=== PATIENT | female | born 1980 | race African-American/Black ===

== ENCOUNTER 2017-04-20 00:16 | Inpatient (IN) | payer OTHER ==
[~2017-04-20] VITALS: Ht 167.6 cm; Wt 168.0 kg
[~2017-04-20 00:16] MED LIST: METO25TA2 PO; TRIA1CAP3 PO
[2017-04-20 00:59] LABS: NEG OBC UR NEG; POS OBC UR POS
[2017-04-20 01:32] LABS: BASO # 0.2 x10^3/uL (0.0-0.2); BASO % 1 % (0-3); EOS % 2 % (0-3); HEMATOCRIT 32.5 % (36.0-47.0); HEMOGLOBIN 10.3 g/dL (12.0-15.5); LYMPH # 2.6 x10^3/uL (1.0-4.8); LYMPH % 18 % (24-48); MEAN CORPUSCULAR HEMOGLOBIN 24 pg (25-35); MEAN CORPUSCULAR HGB CONC 32 g/dL (31-37); MEAN CORPUSCULAR VOLUME 76 fL (79-100); MONO % 6 % (0-9); NEUT % 72 % (31-73); PLATELET COUNT 440 x10^3/uL (140-400); RED CELL DISTRIBUTION WIDTH 17.7 % (11.5-14.5); WHITE BLOOD COUNT 14.4 x10^3/uL (4.0-11.0)
[2017-04-20 01:44] LABS: CALCIUM 8.9 mg/dL (8.5-10.1); GFR 75.9; POTASSIUM 3.8 mmol/L (3.5-5.1)
[2017-04-20 01:45] LABS: INR 1.1 (0.8-1.1); PROTHROMBIN TIME PATIENT 13.5 SEC (11.7-14.0)
[2017-04-20 01:51] LABS: ALBUMIN 3.1 g/dL (3.4-5.0); ALBUMIN/GLOBULIN RATIO 0.7 (1.0-1.7); MAGNESIUM 1.7 mg/dL (1.8-2.4); TOTAL BILIRUBIN 0.3 mg/dL (0.2-1.0); TOTAL PROTEIN 7.8 g/dL (6.4-8.2)
--- NOTE | 2017-04-20 01:54 | RAD ---
CT head without contrast: Reason for examination: Left-sided numbness tonight for 2 hours. Axial images were obtained through the brain. No contrast was administered. Exposure: One or more of the following individualized dose reduction techniques were utilized for this examination: 1. Automated exposure control 2. Adjustment of the mA and/or kV according to patient size 3. Use of iterative reconstruction technique. Ventricular systems are symmetric and not dilated. No midline shift is seen. There is no evidence of intracranial hemorrhage, mass, infarct or edema. No abnormalities are seen at the orbits. The paranasal sinuses and mastoid air cells visualized are clear. No skull abnormality is seen. IMPRESSION: No acute intracranial abnormality evident. Electronically signed by: Lisa Motta MD (04/20/2017 1:50 AM)
[2017-04-20] MEDS ORDERED: ASPIRIN 325 MG TABLET PO ONE (02:00)
[2017-04-20] MEDS ORDERED: ACETAMINOPHEN 325 MG TABLET. PO PRN (02:15)
[2017-04-20] MEDS ORDERED: ONDANSETRON PF 4 MG/2 ML VIAL. IV PRN ×2 (02:15→09:04)
[2017-04-20] MEDS ORDERED: NITROGLYCERIN SUBLINGUAL 0.4 MG BOTTLE OF 25. SL PRN (02:15)
[2017-04-20] MEDS ORDERED: MORPHINE SULFATE 4 MG/ML DISP.SYRIN. IV PRN (02:15)
--- NOTE | 2017-04-20 02:52 | PHYS DOC ---
Past Medical History Past Medical History: Diabetes-Type II, Hypertension Past Surgical History: Additional Past Surgical Histo: x 2. Alcohol Use: Occasionally Drug Use: None Adult General Chief Complaint Chief Complaint: NEURO SYMPTOMS/DEFICITS HPI HPI Patient is a 36 year old female who presents with left arm pain & numbness. She reports onset of symptoms about 2 hours prior to arrival. reports numbness & tingling from left shoulder to fingertips associated with pain. She denies weakness. Denies facial droop, speech changes, chest pain, shortness of breath , lower extremity numbness/weakness. She denies previous history of similar symptoms. She has history of HTN for which she takes metoprolol, triamterene, HCTZ, & states she missed her doses for several days over the weekend. She denies history of CAD or CVA. Mother had CVA at age < 50. She is a nonsmoker. Review of Systems Review of Systems Constitutional: Denies fever or chills Eyes: Denies change in visual acuity HENT: Denies nasal congestion or sore throat Respiratory: Denies cough or shortness of breath Cardiovascular: Denies chest pain or edema GI: Denies abdominal pain, nausea, vomiting, or diarrhea : Denies dysuria or hematuria Musculoskeletal: see HPI Integument: Denies rash or skin lesions Neurologic: Denies headache, reports sensory changes to LUE as above Current Medications Current Medications Current Medications Medications (Trade) Dose Ordered Sig/[facility] Start Time Stop Time Status Last Admin Dose Admin Aspirin (Ti Aspirin) 325 mg 1X ONCE 04/20/17 02:00 04/20/17 02:04 DC Allergies Allergies Allergies Coded Allergies Type Severity Reaction Last Updated Verified lisinopril Allergy Unknown facial swelling 06/30/14 Yes peanut Allergy Unknown 04/20/17 Yes Uncoded Allergies Type Severity Reaction Last Updated Verified COTTON SEED Allergy Unknown 04/20/17 Physical Exam Physical Exam Constitutional: morbidly obese, no acute distress, non-toxic appearance. HENT: Normocephalic, atraumatic, bilateral external ears normal, oropharynx moist, nose normal. Eyes: PERRLA, EOMI, conjunctiva normal, no discharge. Neck: supple, no stridor. Cardiovascular: RRR, no murmurs, no edema. Lungs & Thorax: LCTAB, no wheezing, no respiratory distress. no chest wall tenderness with palpation. Abdomen: soft, nontender, nondistended. Skin: Warm, dry, no erythema, no rash. Back: No tenderness. Extremities: No tenderness, no edema. Neurologic: Alert and oriented X 3, CN2-12 grossly intact, symmetric strength/ sensation to UE & LE, no sensory deficits on my exam, NIH = 0. Psychologic: Affect normal, judgement normal, mood normal. Current Patient Data Vital Signs Vital Signs Date Time Temp Pulse Resp B/P (MAP) Pulse Ox O2 Delivery O2 Flow Rate FiO2 04/20/17 00:42 97.9 93 20 179/105 (129) 98 Room Air 97.9 Lab Values Laboratory Tests Test 04/20/17 00:30 04/20/17 01:20 Urine Test Negative (NEG) White Blood Count 14.4 x10^3/uL (4.0-11.0) H Red Blood Count 4.30 x10^6/uL (3.50-5.40) Hemoglobin 10.3 g/dL (12.0-15.5) L Hematocrit 32.5 % (36.0-47.0) L Mean Corpuscular Volume 76 fL (79-100) L Mean Corpuscular Hemoglobin 24 pg (25-35) L Mean Corpuscular Hemoglobin Concent 32 g/dL (31-37) Red Cell Distribution Width 17.7 % (11.5-14.5) H Platelet Count 440 x10^3/uL (140-400) H Neutrophils (%) (Auto) 72 % (31-73) Lymphocytes (%) (Auto) 18 % (24-48) L Monocytes (%) (Auto) 6 % (0-9) Eosinophils (%) (Auto) 2 % (0-3) Basophils (%) (Auto) 1 % (0-3) Neutrophils # (Auto) 10.4 x10^3uL (1.8-7.7) H Lymphocytes # (Auto) 2.6 x10^3/uL (1.0-4.8) Monocytes # (Auto) 0.9 x10^3/uL (0.0-1.1) Eosinophils # (Auto) 0.3 x10^3/uL (0.0-0.7) Basophils # (Auto) 0.2 x10^3/uL (0.0-0.2) Prothrombin Time 13.5 SEC (11.7-14.0) Prothrombin Time INR 1.1 (0.8-1.1) PTT 27 SEC (24-38) Sodium Level 137 mmol/L (136-145) Potassium Level 3.8 mmol/L (3.5-5.1) Chloride Level 102 mmol/L (98-107) Carbon Dioxide Level 25 mmol/L (21-32) Anion Gap 10 (6-14) Blood Urea Nitrogen 13 mg/dL (7-20) Creatinine 1.0 mg/dL (0.6-1.0) Estimated GFR (Cockcroft-Gault) 75.9 BUN/Creatinine Ratio 13 (6-20) Glucose Level 141 mg/dL (70-99) H Calcium Level 8.9 mg/dL (8.5-10.1) Magnesium Level 1.7 mg/dL (1.8-2.4) L Total Bilirubin 0.3 mg/dL (0.2-1.0) Aspartate Amino Transferase (AST) 14 U/L (15-37) L Alanine Aminotransferase (ALT) 17 U/L (14-59) Alkaline Phosphatase 77 U/L (46-116) Troponin I Quantitative 0.038 ng/mL (0.000-0.055) XL-Gei-C-Type Natriuretic Peptide 114 pg/mL (0-124) Total Protein 7.8 g/dL (6.4-8.2) Albumin 3.1 g/dL (3.4-5.0) L Albumin/Globulin Ratio 0.7 (1.0-1.7) L Laboratory Tests 04/20/17 01:20 Laboratory Tests 04/20/17 01:20 EKG EKG interpreted by me: NSR rate 78, no St elevation, T waves inverted in lead [address] depression, normal intervals, no ectopy.[] Radiology/Procedures Radiology/Procedures PROCEDURE: CT HEAD WO CONTRAST CT head without contrast: Reason for examination: Left-sided numbness tonight for 2 hours. Axial images were obtained through the brain. No contrast was administered. Exposure: One or more of the following individualized dose reduction techniques were utilized for this examination: 1. Automated exposure control 2. Adjustment of the mA and/or kV according to patient size 3. Use of iterative reconstruction technique. Ventricular systems are symmetric and not dilated. No midline shift is seen. There is no evidence of intracranial hemorrhage, mass, infarct or edema. No abnormalities are seen at the orbits. The paranasal sinuses and mastoid air cells visualized are clear. No skull abnormality is seen. IMPRESSION: No acute intracranial abnormality evident. Electronically signed by: Lisa Gray MD (04/20/2017 1:50 AM) DICTATED and SIGNED BY: LISA GRAY MD DATE: 04/20/17 0148 CXR: interpreted by me: no cardiomegaly, no infiltrate, no pneumothorax.[] Course & Med Decision Making Course & Med Decision Making Pertinent Labs and Imaging studies reviewed. (See chart for details) The patient presents with left arm numbness and pain. NIH is 0. No focal findings to indicate need for TPA. Blood pressure significantly elevated here after medication noncompliance. Concerned that this could represent anginal equivalent. Obtained labs, EKG, chest x-ray, head CT. Troponin still within negative range but is not undetectable. Blood pressure improved to 160s over 90s without intervention. Will give hydralazine when necessary. Recommended admission to the hospital for further evaluation and treatment and blood pressure management. Patient agrees with plan of care. Discussed with Dr. Hardwick who agrees to admit to inpatient status, cardiology consult placed to Dr. Verma. The patient is admitted in stable condition. [] Dragon Disclaimer Dragon Disclaimer This electronic medical record was generated, in whole or in part, using a voice recognition dictation system. Departure Departure Impression: Primary Impression: Chest pain Additional Impressions: Extremity pain Accelerated hypertension Leukocytosis Anemia Disposition: ADMITTED INPATIENT Condition: STABLE Referrals: YESICA CABALLERO MD (PCP) Problem Qualifiers MIKE OLIVA MD Apr 20, 2017 02:52
[2017-04-20] MEDS ORDERED: METO100T2 PO (02:54)
[2017-04-20] MEDS ORDERED: METF-620 PO (02:54)
[2017-04-20 02:55] VITALS: BP 168/110
[2017-04-20 02:59] VITALS: BP 168/110
[2017-04-20] MEDS ORDERED: hydrALAZINE 20 MG/ML VIAL. IVP PRN (03:00)
[2017-04-20 07:00] VITALS: BP 121/70
--- NOTE | 2017-04-20 07:15 | RAD ---
Portable chest, 04/20/2017: History: Chest pain The heart size and pulmonary vascularity are normal. The lungs are clear. There is no evidence of pleural fluid. IMPRESSION: No acute cardiopulmonary abnormality is detected.
--- NOTE | 2017-04-20 07:45 | EKG ---
[facility] [address] [place] [address] Test Date: 2017-04-20 Test Time: 01:03:53 Pat Name: JULIA BHANDARI Department: Room: 263 1 Gender: F [employer] Field Technician: : 1980 Requested By: MIKE OLIVA Order Number: [id number] Reading MD: Dolores Enamorado Measurements Intervals [place] Rate: 78 P: 53 [place]: 178 QRS: 22 QRSD: 82 T: 13 QT: 366 QTc: 421 Interpretive Statements SINUS RHYTHM LEFT ATRIAL ABNORMALITY ABNORMAL ECG RI6.01 Compared to ECG 06/30/2014 23:15:51 Atrial abnormality now present Electronically Signed On 04-22-2017 22:31:50 CDT by Dolores Enamorado
[2017-04-20] MEDS ORDERED: MAGNESIUM SULFATE 2GM 50 ML IV ONE ×2 (09:15→11:00)
[2017-04-20] MEDS ORDERED: TRIAMTERENE/HCTZ 37.5/25MG TABLET. PO SCH (09:30)
[2017-04-20] MEDS ORDERED: METOPROLOL TART IMMED RELEASE 50 MG TABLET. PO SCH (09:30)
--- NOTE | 2017-04-20 10:19 | PDOC2 ---
HUONG MEDINA DIRECTOR SAFETY 04/20/17 1019: CARDIAC CONSULT DATE OF CONSULT Date of Consult DATE: 04/20/17 TIME: 10:13 REASON FOR CONSULT Reason for Consult: Chest pain Hypertension REFERRING PHYSICIAN Referring Physician: Dr. Liu SOURCE Source: Chart review, Patient HISTORY OF PRESENT ILLNESS HISTORY OF PRESENT ILLNESS This is a 36 yo female who presented with complaints of left hand numbness and tingling. Patient reports she woke up from sleeping around 11pm with symptoms. Had brief episode of sharp chest discomfort, lasting a couple of minutes. Resolved without intervention. Let hand numbness persisted for about 30mins so she decided to come into the ED for further evaluation. Resolved upon arrival to ED. Has a history of HTN. Reports compliance with medications generally, but forgot to take over the weekend. Does reports also having some palpitations- thinks this is due to not taking metoprolol. No complaints of dizziness, SOA, diaphoresis, or nausea/vomiting. PAST MEDICAL HISTORY Cardiovascular: HTN Pulmonary: Other (SHAVONNE- noncompliant with CPAP) CENTRAL NERVOUS SYSTEM: Other (no pertinent hx ) GI: GERD Heme/Onc: No pertinent hx Hepatobiliary: No pertinent hx Psych: No pertinent hx Rheumatologic: No pertinent hx Infectious disease: No pertinent hx ENT: No pertinent hx Endocrine: Diabetes, Other (obesity ) Dermatology: No pertinent hx PAST SURGICAL HISTORY Past Surgical History: FAMILY HISTORY Family History: Diabetes, Heart Disease, Hypertension, Stroke SOCIAL HISTORY Smoke: No ALCOHOL: occassional Drugs: None Lives: with Family CURRENT MEDICATIONS CURRENT MEDICATIONS Current Medications Medications (Trade) Dose Ordered Sig/Rosalino Route PRN Reason Start Time Stop Time Status Last Admin Dose Admin Aspirin (Ti Aspirin) 325 mg 1X ONCE PO 04/20/17 02:00 04/20/17 02:04 DC 04/20/17 02:40 Ondansetron HCl (Zofran) 4 mg PRN Q8HRS PRN IV NAUSEA/VOMITING 04/20/17 02:15 04/20/17 09:06 DC 04/20/17 03:47 Hydralazine HCl (Apresoline) 10 mg PRN Q4HRS PRN IVP ELEVATED BP, SEE COMMENTS 04/20/17 03:00 04/20/17 03:10 ALLERGIES ALLERGIES: Coded Allergies: lisinopril (Verified Allergy, Unknown, facial swelling, 06/30/14) peanut (Verified Allergy, Unknown, 04/20/17) Uncoded Allergies: COTTON SEED (Allergy, Unknown, 04/20/17) ROS Review of System 14 point ROS conducted with pertinent positives noted above in HPI. PHYSICAL EXAM General: Alert, Oriented X3, Cooperative, No acute distress HEENT: Atraumatic Lungs: Clear to auscultation, Normal air movement Heart: Regular rate, Normal S1, Normal S2 Abdomen: Soft, No tenderness, Other (obesity ) Extremities: No edema, Normal pulses Skin: No breakdown, No significant lesion Neuro: Normal speech, Sensation intact Psych/Mental Status: Mental status NL, Mood NL MUSCULOSKELETAL: Full range of motion without pain VITALS VITALS Vital Signs Date Time Temp Pulse Resp B/P (MAP) Pulse Ox O2 Delivery O2 Flow Rate FiO2 04/20/17 08:00 Room Air 04/20/17 07:00 98.0 76 23 121/70 (87) 95 98.0 LABS Lab: Laboratory Tests Test 04/20/17 00:30 04/20/17 01:20 04/20/17 08:05 Urine Test Negative (NEG) White Blood Count 14.4 x10^3/uL (4.0-11.0) Red Blood Count 4.30 x10^6/uL (3.50-5.40) Hemoglobin 10.3 g/dL (12.0-15.5) Hematocrit 32.5 % (36.0-47.0) Mean Corpuscular Volume 76 fL (79-100) Mean Corpuscular Hemoglobin 24 pg (25-35) Mean Corpuscular Hemoglobin Concent 32 g/dL (31-37) Red Cell Distribution Width 17.7 % (11.5-14.5) Platelet Count 440 x10^3/uL (140-400) Neutrophils (%) (Auto) 72 % (31-73) Lymphocytes (%) (Auto) 18 % (24-48) Monocytes (%) (Auto) 6 % (0-9) Eosinophils (%) (Auto) 2 % (0-3) Basophils (%) (Auto) 1 % (0-3) Neutrophils # (Auto) 10.4 x10^3uL (1.8-7.7) Lymphocytes # (Auto) 2.6 x10^3/uL (1.0-4.8) Monocytes # (Auto) 0.9 x10^3/uL (0.0-1.1) Eosinophils # (Auto) 0.3 x10^3/uL (0.0-0.7) Basophils # (Auto) 0.2 x10^3/uL (0.0-0.2) Prothrombin Time 13.5 SEC (11.7-14.0) Prothromb Time International Ratio 1.1 (0.8-1.1) Activated Partial Thromboplast Time 27 SEC (24-38) Sodium Level 137 mmol/L (136-145) Potassium Level 3.8 mmol/L (3.5-5.1) Chloride Level 102 mmol/L (98-107) Carbon Dioxide Level 25 mmol/L (21-32) Anion Gap 10 (6-14) Blood Urea Nitrogen 13 mg/dL (7-20) Creatinine 1.0 mg/dL (0.6-1.0) Estimated GFR (Cockcroft-Gault) 75.9 BUN/Creatinine Ratio 13 (6-20) Glucose Level 141 mg/dL (70-99) Calcium Level 8.9 mg/dL (8.5-10.1) Magnesium Level 1.7 mg/dL (1.8-2.4) Total Bilirubin 0.3 mg/dL (0.2-1.0) Aspartate Amino Transf (AST/SGOT) 14 U/L (15-37) Alanine Aminotransferase (ALT/SGPT) 17 U/L (14-59) Alkaline Phosphatase 77 U/L (46-116) Troponin I Quantitative 0.038 ng/mL (0.000-0.055) 0.041 ng/mL (0.000-0.055) AR-Ffr-K-Type Natriuretic Peptide 114 pg/mL (0-124) Total Protein 7.8 g/dL (6.4-8.2) Albumin 3.1 g/dL (3.4-5.0) Albumin/Globulin Ratio 0.7 (1.0-1.7) ASSESSMENT/PLAN ASSESSMENT/PLAN 1. Chest pain, atypical 2. Hypertension 3. Diabetes 4. GERD 5. Obesity 6. Hypomagnesemia 7. BIANCA Recommendations AMI ruled out. check lipids, TSH Given risk factors, will check echo to assess LV function/presence of WMA. If WNL, may discharge from CV standpoint. Resume home antiHTN therapy. Monitor to assess need for titration Encouraged weight loss/ lifestyle modification and compliance with CPAP DM2 management per PCP Problems: NENITA COREY MD 04/20/17 1707: CARDIAC CONSULT ALLERGIES ALLERGIES: Coded Allergies: lisinopril (Verified Allergy, Unknown, facial swelling, 06/30/14) peanut (Verified Allergy, Unknown, 04/20/17) Uncoded Allergies: COTTON SEED (Allergy, Unknown, 04/20/17) ASSESSMENT/PLAN ASSESSMENT/PLAN 36-year-old woman admitted for atypical and most likely noncardiac chest pain. She has a history of hypertension. Patient seen and examined. Agree with above nurse practitioner note. Normal cardiac exam. She is morbidly obese. I had an extensive discussion with her about lifestyle changes. Echo cardiac exam is reviewed and notable for mild to moderate LV hypertrophy with normal wall motion. Okay to discharge from a cardiac standpoint with close follow-up with PCP. Problems: HUONG MEDINA APRN Apr 20, 2017 10:19 NENITA COREY MD Apr 20, 2017 17:07
[2017-04-20 11:00] VITALS: BP 168/109
[2017-04-20 11:38] LABS: CHOLESTEROL/HDL RATIO 4.5
[2017-04-20] MEDS ORDERED: CIPR500T94 PO (12:40)
--- NOTE | 2017-04-20 12:46 | PDOC1 ---
History and Physical Date of Admission Date of Admission DATE: 04/20/17 TIME: 12:40 Identification/Chief Complaint Chief Complaint left arm numbness and heaviness Problems: Source Source: Caregiver, Chart review, Patient History of Present Illness History of Present Illness 36 obese AA female with HTN PCP Dr. Donis, bP on high side claims compliance to BB and trimterene HCTZ once day (allergic to robby inhib), left arm numbness and heaviness last night , brief sharp chest dc. NO diaphoresis, n/v. NO precipitating or alleviating factor,. CP free now, Admitted. CArds has seen , planned for echo,. IF echo neg then home,Trops and ekg reassuring, BP on high side though, advised/educated, ROS: Dysuria, no UA on admit Past Medical History Cardiovascular: HTN Pulmonary: Other (SHAVONNE- noncompliant with CPAP) CENTRAL NERVOUS SYSTEM: Other (no pertinent hx ) GI: GERD Heme/Onc: No pertinent hx Hepatobiliary: No pertinent hx Psych: No pertinent hx Rheumatologic: No pertinent hx Infectious disease: No pertinent hx ENT: No pertinent hx Endocrine: Diabetes, Other (obesity ) Dermatology: No pertinent hx Past Surgical History Past Surgical History: Family History Family History: Diabetes, Heart Disease, Hypertension, Stroke Social History Smoke: No ALCOHOL: occassional Drugs: None Current Problem List Problem List Problems Medical Problems: (1) Accelerated hypertension Status: Acute (2) Anemia Status: Acute (3) Extremity pain Status: Acute (4) Leukocytosis Status: Acute Problems: Current Medications Current Medications Current Medications Aspirin (Ti Aspirin) 325 mg 1X ONCE PO Last administered on 04/20/17 02:40 ; Start 04/20/17 at 02:00; Stop 04/20/17 at 02:04; Status DC Ondansetron HCl (Zofran) 4 mg PRN Q8HRS PRN IV NAUSEA/VOMITING Last administered on 04/20/17 03:47; Start 04/20/17 at 02:15; Stop 04/20/17 at 09:06; Status DC Morphine Sulfate 4 mg PRN Q2HR PRN IV PAIN; Start 04/20/17 at 02:15; Stop at 02:14 Acetaminophen (Tylenol) 650 mg PRN Q4HRS PRN PO FEVER; Start 04/20/17 at 02:15; Stop 04/21/17 at 02:14 Nitroglycerin (Nitrostat) 0.4 mg PRN Q5MIN PRN SL CHEST PAIN; Start 04/20/17 at 02:15; Stop 04/21/17 at 02:14 Hydralazine HCl (Apresoline) 10 mg PRN Q4HRS PRN IVP ELEVATED BP, SEE COMMENTS Last administered on 04/20/17 03:10; Start 04/20/17 at 03:00 Ondansetron HCl (Zofran) 4 mg PRN Q6HRS PRN IV NAUSEA/VOMITING 1ST CHOICE; Start 04/20/17 at 09:04; Stop 04/21/17 at 09:03 Metformin HCl (Glucophage) 1,000 mg BIDWMEALS PO ; Start 04/20/17 at 17:00 Metoprolol Tartrate (Lopressor) 100 mg BID PO Last administered on 04/20/17 10: 39; Start 04/20/17 at 09:30 Triamterene/HCTZ (Maxzide 37.5/ 25mg) 1 tab DAILY PO Last administered on 10:39; Start 04/20/17 at 09:30 Magnesium Sulfate/ Dextrose 50 ml @ 25 mls/hr 1X ONCE IV Last administered on 04/20/17 10:39; Start 04/20/17 at 09:15; Stop 04/20/17 at 11:14; Status DC Magnesium Sulfate/ Dextrose 50 ml @ 25 mls/hr 1X ONCE IV ; Start 04/20/17 at 11: 00; Stop 04/20/17 at 12:59 Ciprofloxacin (Cipro) 500 mg BID PO ; Start 04/20/17 at 21:00; Status UNV Active Scripts Active Reported Metformin Hcl 1,000 Mg Tablet 1,000 Mg PO BID Metoprolol Tartrate 100 Mg Tablet 1 Tab PO BID Triamterene-Hctz 37.5-25 Mg Cp (Triamterene/Hydrochlorothiazid) 1 Each Capsule 1 Each PO DAILY Allergies Allergies: Coded Allergies: lisinopril (Verified Allergy, Unknown, facial swelling, 06/30/14) peanut (Verified Allergy, Unknown, 04/20/17) Uncoded Allergies: COTTON SEED (Allergy, Unknown, 04/20/17) ROS PSYCHOLOGICAL ROS: No: Anxiety, Behavioral Disorder, Concentration difficultie , Decreased libido, Depression, Disorientation, Hallucinations, Hostility, Irritablity, Memory difficulties, Mood Swings, Obsessive thoughts, Physical abuse, Sexual abuse, Sleep disturbances, Suicidal ideation, Other Eyes: No Blurry vision, No Decreased vision, No Double vision, No Dry eyes, No Excessive tearing, No Eye Pain, No Itchy Eyes, No Loss of vision, No Photophobia , No Scotomata, No Uses contacts, No Uses glasses, No Other HEENT: No: Heacaches, Visual Changes, Hearing change, Nasal congestion, Nasal discharge, Oral lesions, Sinus pain, Sore Throat, Epistaxis, Sneezing, Snoring, Tinnitus, Vertigo, Vocal changes, Other ALLERGY AND IMMUNOLOGY: No: Hives, Insect Bite Sensitivity, Itchy/Watery Eyes, Nasal Congestion, Post Nasal Drip, Seasonal Allergies, Other Hematological and Lymphatic: No: Bleeding Problems, Blood Clots, Blood Transfusions, Brusing, Night Sweats, Pallor, Swollen Lymph Nodes, Other ENDOCRINE: No: Breast Changes, Galactorrhea, Hair Pattern Changes, Hot Flashes , Malaise/lethargy, Mood Swings, Palpitations, Polydipsia/polyuria, Skin Changes , Temperature Intolerance, Unexpected Weight Changes, Other Respiratory: No: Cough, Hemoptysis, Orthopnea, Pleuritic Pain, Shortness of breath, SOB with excertion, Sputum Changes, Stridor, Tachypnea, Wheezing, Other Cardiovascular: yes Chest Pain, No Palpitations, No Orthopnea, No Paroxysmal Noc. Dyspnea, No Edema, No Lt Headedness, No Other Gastrointestinal: No Nausea, No Vomiting, No Abdominal Pain, No Diarrhea, No Constipation, No Melena, No Hematochezia, No Other Genitourinary: YES Dysuria, No Frequency, No Incontinence, No Hematuria, No Retention, No Discharge, No Urgency, No Pain, No Flank Pain, No Other, No , No , No , No , No , No , No Musculoskeletal: Yes Other (left arm heaviness/numbness) Skin: No Dry Skin, No Eczema, No Hair Changes, No Lumps, No Mole Changes, No Mottling, No Nail Changes, No Pruritus, No Rash, No Skin Lesion Changes, No Other, No Acne Physical Exam General: Alert, Oriented X3, Cooperative, No acute distress HEENT: Atraumatic, PERRLA Lungs: Clear to auscultation, Normal air movement Heart: S1S2, RRR, no thrills, no rubs, no gallops, no murmurs Cardiovascular: S1, S2 Breasts: Normal, Rt breast nml w/o mass, Lt breast nml w/o mass, Nipples normal Abdomen: Normal bowel sounds, Soft, No tenderness, No hepatosplenomegaly, No masses Male Genitals Exam: normal genitalia, normal prostate Rectal Exam: not examined PELVIC: Nml ext genitalia Extremities: No clubbing, No cyanosis, No edema, Normal pulses, No tenderness/ swelling Skin: No rashes, No breakdown, No significant lesion Neuro: Normal gait, Normal speech, Strength at 5/5 X4 ext, Normal tone, Sensation intact, Cranial nerves 3-12 NL, Reflexes 2+ Psych/Mental Status: Mental status NL, Mood NL Vitals Vitals Vital Signs Date Time Temp Pulse Resp B/P (MAP) Pulse Ox O2 Delivery O2 Flow Rate FiO2 04/20/17 11:00 98.4 76 20 168/109 (128) 95 Room Air 98.4 Labs Labs Laboratory Tests Test 04/20/17 00:30 04/20/17 01:20 04/20/17 08:05 04/20/17 12:28 Urine Test Negative (NEG) White Blood Count 14.4 x10^3/uL (4.0-11.0) Red Blood Count 4.30 x10^6/uL (3.50-5.40) Hemoglobin 10.3 g/dL (12.0-15.5) Hematocrit 32.5 % (36.0-47.0) Mean Corpuscular Volume 76 fL (79-100) Mean Corpuscular Hemoglobin 24 pg (25-35) Mean Corpuscular Hemoglobin Concent 32 g/dL (31-37) Red Cell Distribution Width 17.7 % (11.5-14.5) Platelet Count 440 x10^3/uL (140-400) Neutrophils (%) (Auto) 72 % (31-73) Lymphocytes (%) (Auto) 18 % (24-48) Monocytes (%) (Auto) 6 % (0-9) Eosinophils (%) (Auto) 2 % (0-3) Basophils (%) (Auto) 1 % (0-3) Neutrophils # (Auto) 10.4 x10^3uL (1.8-7.7) Lymphocytes # (Auto) 2.6 x10^3/uL (1.0-4.8) Monocytes # (Auto) 0.9 x10^3/uL (0.0-1.1) Eosinophils # (Auto) 0.3 x10^3/uL (0.0-0.7) Basophils # (Auto) 0.2 x10^3/uL (0.0-0.2) Prothrombin Time 13.5 SEC (11.7-14.0) Prothromb Time International Ratio 1.1 (0.8-1.1) Activated Partial Thromboplast Time 27 SEC (24-38) Sodium Level 137 mmol/L (136-145) Potassium Level 3.8 mmol/L (3.5-5.1) Chloride Level 102 mmol/L (98-107) Carbon Dioxide Level 25 mmol/L (21-32) Anion Gap 10 (6-14) Blood Urea Nitrogen 13 mg/dL (7-20) Creatinine 1.0 mg/dL (0.6-1.0) Estimated GFR (Cockcroft-Gault) 75.9 BUN/Creatinine Ratio 13 (6-20) Glucose Level 141 mg/dL (70-99) Calcium Level 8.9 mg/dL (8.5-10.1) Magnesium Level 1.7 mg/dL (1.8-2.4) Total Bilirubin 0.3 mg/dL (0.2-1.0) Aspartate Amino Transf (AST/SGOT) 14 U/L (15-37) Alanine Aminotransferase (ALT/SGPT) 17 U/L (14-59) Alkaline Phosphatase 77 U/L (46-116) Troponin I Quantitative 0.038 ng/mL (0.000-0.055) 0.041 ng/mL (0.000-0.055) WK-Dfz-N-Type Natriuretic Peptide 114 pg/mL (0-124) Total Protein 7.8 g/dL (6.4-8.2) Albumin 3.1 g/dL (3.4-5.0) Albumin/Globulin Ratio 0.7 (1.0-1.7) Triglycerides Level 95 mg/dL (0-150) Cholesterol Level 161 mg/dL (0-200) LDL Cholesterol, Calculated 106 mg/dL (0-100) VLDL Cholesterol, Calculated 19 mg/dL (0-40) Non-HDL Cholesterol Calculated 125 mg/dL (0-129) HDL Cholesterol 36 mg/dL (40-60) Cholesterol/HDL Ratio 4.5 Thyroid Stimulating Hormone (TSH) 2.934 uIU/mL (0.358-3.74) Glucose (Fingerstick) 130 mg/dL (70-99) Laboratory Tests Test 04/20/17 00:30 04/20/17 01:20 04/20/17 08:05 04/20/17 12:28 Urine Test Negative (NEG) White Blood Count 14.4 x10^3/uL (4.0-11.0) Red Blood Count 4.30 x10^6/uL (3.50-5.40) Hemoglobin 10.3 g/dL (12.0-15.5) Hematocrit 32.5 % (36.0-47.0) Mean Corpuscular Volume 76 fL (79-100) Mean Corpuscular Hemoglobin 24 pg (25-35) Mean Corpuscular Hemoglobin Concent 32 g/dL (31-37) Red Cell Distribution Width 17.7 % (11.5-14.5) Platelet Count 440 x10^3/uL (140-400) Neutrophils (%) (Auto) 72 % (31-73) Lymphocytes (%) (Auto) 18 % (24-48) Monocytes (%) (Auto) 6 % (0-9) Eosinophils (%) (Auto) 2 % (0-3) Basophils (%) (Auto) 1 % (0-3) Neutrophils # (Auto) 10.4 x10^3uL (1.8-7.7) Lymphocytes # (Auto) 2.6 x10^3/uL (1.0-4.8) Monocytes # (Auto) 0.9 x10^3/uL (0.0-1.1) Eosinophils # (Auto) 0.3 x10^3/uL (0.0-0.7) Basophils # (Auto) 0.2 x10^3/uL (0.0-0.2) Prothrombin Time 13.5 SEC (11.7-14.0) Prothromb Time International Ratio 1.1 (0.8-1.1) Activated Partial Thromboplast Time 27 SEC (24-38) Sodium Level 137 mmol/L (136-145) Potassium Level 3.8 mmol/L (3.5-5.1) Chloride Level 102 mmol/L (98-107) Carbon Dioxide Level 25 mmol/L (21-32) Anion Gap 10 (6-14) Blood Urea Nitrogen 13 mg/dL (7-20) Creatinine 1.0 mg/dL (0.6-1.0) Estimated GFR (Cockcroft-Gault) 75.9 BUN/Creatinine Ratio 13 (6-20) Glucose Level 141 mg/dL (70-99) Calcium Level 8.9 mg/dL (8.5-10.1) Magnesium Level 1.7 mg/dL (1.8-2.4) Total Bilirubin 0.3 mg/dL (0.2-1.0) Aspartate Amino Transf (AST/SGOT) 14 U/L (15-37) Alanine Aminotransferase (ALT/SGPT) 17 U/L (14-59) Alkaline Phosphatase 77 U/L (46-116) Troponin I Quantitative 0.038 ng/mL (0.000-0.055) 0.041 ng/mL (0.000-0.055) CR-Mxh-H-Type Natriuretic Peptide 114 pg/mL (0-124) Total Protein 7.8 g/dL (6.4-8.2) Albumin 3.1 g/dL (3.4-5.0) Albumin/Globulin Ratio 0.7 (1.0-1.7) Triglycerides Level 95 mg/dL (0-150) Cholesterol Level 161 mg/dL (0-200) LDL Cholesterol, Calculated 106 mg/dL (0-100) VLDL Cholesterol, Calculated 19 mg/dL (0-40) Non-HDL Cholesterol Calculated 125 mg/dL (0-129) HDL Cholesterol 36 mg/dL (40-60) Cholesterol/HDL Ratio 4.5 Thyroid Stimulating Hormone (TSH) 2.934 uIU/mL (0.358-3.74) Glucose (Fingerstick) 130 mg/dL (70-99) VTE Prophylaxis Ordered VTE Prophylaxis Devices: Yes VTE Pharmacological Prophylaxi: Yes Assessment/Plan Assessment/Plan 1. Accelerated hTn POA 2. Dysuria 3. CHets pain, brief 4. Left arm numbnes sin radha background of elevated BP PLAn: Admit OBS Echo NEeds better BP control - sttroke mimic (arm numbness) IF remains elevated will need third agent - cards on board Check UA Cipro nevertheless bec symptomatic Dw CVC RN BLAIR MORALES MD Apr 20, 2017 12:46
--- NOTE | 2017-04-20 12:48 | PDOC3 ---
Discharge Summary Visit Information Date of Admission: Apr 19, 2017 Date of Discharge: Apr 20, 2017 Admitting Diagnosis Comment: 1. Accelerated hTn POA 2. Dysuria 3. CHets pain, brief 4. Left arm numbnes sin radha background of elevated BP PLAn: Admit OBS Echo NEeds better BP control - sttroke mimic (arm numbness) IF remains elevated will need third agent - cards on board Check UA Cipro nevertheless bec symptomatic Dw CVC RN COURSe: IF echo neg, home, Add norvasc third agent if BP still high PO cipro for symptomatic UTI Final Diagnosis Problems Medical Problems: (1) Accelerated hypertension Status: Acute (2) Anemia Status: Acute (3) Extremity pain Status: Acute (4) Leukocytosis Status: Acute Brief Hospital Course Allergies Allergies Coded Allergies Type Severity Reaction Last Updated Verified lisinopril Allergy Unknown facial swelling 06/30/14 Yes peanut Allergy Unknown 04/20/17 Yes Uncoded Allergies Type Severity Reaction Last Updated Verified COTTON SEED Allergy Unknown 04/20/17 Vital Signs Vital Signs Date Time Temp Pulse Resp B/P (MAP) Pulse Ox O2 Delivery O2 Flow Rate FiO2 04/20/17 11:00 98.4 76 20 168/109 (128) 95 Room Air 98.4 Lab Results Laboratory Tests Test 04/20/17 00:30 04/20/17 01:20 04/20/17 08:05 04/20/17 12:28 Urine Test Negative (NEG) White Blood Count 14.4 x10^3/uL (4.0-11.0) Red Blood Count 4.30 x10^6/uL (3.50-5.40) Hemoglobin 10.3 g/dL (12.0-15.5) Hematocrit 32.5 % (36.0-47.0) Mean Corpuscular Volume 76 fL (79-100) Mean Corpuscular Hemoglobin 24 pg (25-35) Mean Corpuscular Hemoglobin Concent 32 g/dL (31-37) Red Cell Distribution Width 17.7 % (11.5-14.5) Platelet Count 440 x10^3/uL (140-400) Neutrophils (%) (Auto) 72 % (31-73) Lymphocytes (%) (Auto) 18 % (24-48) Monocytes (%) (Auto) 6 % (0-9) Eosinophils (%) (Auto) 2 % (0-3) Basophils (%) (Auto) 1 % (0-3) Neutrophils # (Auto) 10.4 x10^3uL (1.8-7.7) Lymphocytes # (Auto) 2.6 x10^3/uL (1.0-4.8) Monocytes # (Auto) 0.9 x10^3/uL (0.0-1.1) Eosinophils # (Auto) 0.3 x10^3/uL (0.0-0.7) Basophils # (Auto) 0.2 x10^3/uL (0.0-0.2) Prothrombin Time 13.5 SEC (11.7-14.0) Prothromb Time International Ratio 1.1 (0.8-1.1) Activated Partial Thromboplast Time 27 SEC (24-38) Sodium Level 137 mmol/L (136-145) Potassium Level 3.8 mmol/L (3.5-5.1) Chloride Level 102 mmol/L (98-107) Carbon Dioxide Level 25 mmol/L (21-32) Anion Gap 10 (6-14) Blood Urea Nitrogen 13 mg/dL (7-20) Creatinine 1.0 mg/dL (0.6-1.0) Estimated GFR (Cockcroft-Gault) 75.9 BUN/Creatinine Ratio 13 (6-20) Glucose Level 141 mg/dL (70-99) Calcium Level 8.9 mg/dL (8.5-10.1) Magnesium Level 1.7 mg/dL (1.8-2.4) Total Bilirubin 0.3 mg/dL (0.2-1.0) Aspartate Amino Transf (AST/SGOT) 14 U/L (15-37) Alanine Aminotransferase (ALT/SGPT) 17 U/L (14-59) Alkaline Phosphatase 77 U/L (46-116) Troponin I Quantitative 0.038 ng/mL (0.000-0.055) 0.041 ng/mL (0.000-0.055) QL-Lmb-J-Type Natriuretic Peptide 114 pg/mL (0-124) Total Protein 7.8 g/dL (6.4-8.2) Albumin 3.1 g/dL (3.4-5.0) Albumin/Globulin Ratio 0.7 (1.0-1.7) Triglycerides Level 95 mg/dL (0-150) Cholesterol Level 161 mg/dL (0-200) LDL Cholesterol, Calculated 106 mg/dL (0-100) VLDL Cholesterol, Calculated 19 mg/dL (0-40) Non-HDL Cholesterol Calculated 125 mg/dL (0-129) HDL Cholesterol 36 mg/dL (40-60) Cholesterol/HDL Ratio 4.5 Thyroid Stimulating Hormone (TSH) 2.934 uIU/mL (0.358-3.74) Glucose (Fingerstick) 130 mg/dL (70-99) Laboratory Tests Test 04/20/17 00:30 04/20/17 01:20 04/20/17 08:05 04/20/17 12:28 Urine Test Negative (NEG) White Blood Count 14.4 x10^3/uL (4.0-11.0) Red Blood Count 4.30 x10^6/uL (3.50-5.40) Hemoglobin 10.3 g/dL (12.0-15.5) Hematocrit 32.5 % (36.0-47.0) Mean Corpuscular Volume 76 fL (79-100) Mean Corpuscular Hemoglobin 24 pg (25-35) Mean Corpuscular Hemoglobin Concent 32 g/dL (31-37) Red Cell Distribution Width 17.7 % (11.5-14.5) Platelet Count 440 x10^3/uL (140-400) Neutrophils (%) (Auto) 72 % (31-73) Lymphocytes (%) (Auto) 18 % (24-48) Monocytes (%) (Auto) 6 % (0-9) Eosinophils (%) (Auto) 2 % (0-3) Basophils (%) (Auto) 1 % (0-3) Neutrophils # (Auto) 10.4 x10^3uL (1.8-7.7) Lymphocytes # (Auto) 2.6 x10^3/uL (1.0-4.8) Monocytes # (Auto) 0.9 x10^3/uL (0.0-1.1) Eosinophils # (Auto) 0.3 x10^3/uL (0.0-0.7) Basophils # (Auto) 0.2 x10^3/uL (0.0-0.2) Prothrombin Time 13.5 SEC (11.7-14.0) Prothromb Time International Ratio 1.1 (0.8-1.1) Activated Partial Thromboplast Time 27 SEC (24-38) Sodium Level 137 mmol/L (136-145) Potassium Level 3.8 mmol/L (3.5-5.1) Chloride Level 102 mmol/L (98-107) Carbon Dioxide Level 25 mmol/L (21-32) Anion Gap 10 (6-14) Blood Urea Nitrogen 13 mg/dL (7-20) Creatinine 1.0 mg/dL (0.6-1.0) Estimated GFR (Cockcroft-Gault) 75.9 BUN/Creatinine Ratio 13 (6-20) Glucose Level 141 mg/dL (70-99) Calcium Level 8.9 mg/dL (8.5-10.1) Magnesium Level 1.7 mg/dL (1.8-2.4) Total Bilirubin 0.3 mg/dL (0.2-1.0) Aspartate Amino Transf (AST/SGOT) 14 U/L (15-37) Alanine Aminotransferase (ALT/SGPT) 17 U/L (14-59) Alkaline Phosphatase 77 U/L (46-116) Troponin I Quantitative 0.038 ng/mL (0.000-0.055) 0.041 ng/mL (0.000-0.055) WP-Dke-P-Type Natriuretic Peptide 114 pg/mL (0-124) Total Protein 7.8 g/dL (6.4-8.2) Albumin 3.1 g/dL (3.4-5.0) Albumin/Globulin Ratio 0.7 (1.0-1.7) Triglycerides Level 95 mg/dL (0-150) Cholesterol Level 161 mg/dL (0-200) LDL Cholesterol, Calculated 106 mg/dL (0-100) VLDL Cholesterol, Calculated 19 mg/dL (0-40) Non-HDL Cholesterol Calculated 125 mg/dL (0-129) HDL Cholesterol 36 mg/dL (40-60) Cholesterol/HDL Ratio 4.5 Thyroid Stimulating Hormone (TSH) 2.934 uIU/mL (0.358-3.74) Glucose (Fingerstick) 130 mg/dL (70-99) Brief Hospital Course Ms. Guadalupe is a 36 old [sex] who presented with [ ] 36 obese AA female with HTN PCP Dr. Donis, bP on high side claims compliance to BB and trimterene HCTZ once day (allergic to robby inhib), left arm numbness and heaviness last night , brief sharp chest dc. NO diaphoresis, n/v. NO precipitating or alleviating factor,. CP free now, Admitted. CArds has seen , planned for echo,. IF echo neg then home,Trops and ekg reassuring, BP on high side though, advised/educated, ROS: Dysuria, no UA on admit PLAn: Admit OBS Echo NEeds better BP control - sttroke mimic (arm numbness) IF remains elevated will need third agent - cards on board Check UA Cipro nevertheless bec symptomatic Dw CVC RN COURSe: IF echo neg, home, Add norvasc third agent if BP still high PO cipro for symptomatic UTI Discharge Information Condition at Discharge: Improved, Stable Disposition/Orders: D/C to Home Scheduled Metformin Hcl (Metformin Hcl), 1,000 MG PO BID, (Reported) Metoprolol Tartrate (Metoprolol Tartrate), 1 TAB PO BID, (Reported) Triamterene/Hydrochlorothiazid (Triamterene-Hctz 37.5-25 Mg Cp), 1 EACH PO DAILY , (Reported) Discontinued Medications Metoprolol Succinate (Toprol Xl), 25 MG PO, (Reported) Discontinued Reason: Prescription changed BLAIR MORALES MD Apr 20, 2017 12:48
--- NOTE | 2017-04-20 12:49 | EKG ---
[facility] [address] [place] [address] Test Date: 2017-04-20 Test Time: 12:12:37 Pat Name: JULIA BHANDARI Department: Room: 263 1 Gender: F [employer]: LATOYA : 1980 Requested By: MIKE OLIVA Order Number: [id number] Reading MD: Dolores Enamorado Measurements Intervals [place] Rate: 97 P: 52 DC: 164 QRS: 19 QRSD: 82 T: 16 QT: 348 QTc: 446 Interpretive Statements SINUS RHYTHM NORMAL ECG RI6.01 Compared to ECG 06/30/2014 23:15:51 No significant changes Electronically Signed On 04-22-2017 22:38:40 CDT by Dolores Enamorado
[2017-04-20] MEDS ORDERED: CIPROFLOXACIN HCL 250 MG TABLET. PO SCH (13:00)
[2017-04-20 13:06] LABS: BILIRUBIN,URINE NEGATIVE (NEG); GLUCOSE,URINE NEGATIVE (NEG); NITRITE,URINE NEGATIVE (NEG); PROTEIN,URINE NEGATIVE (NEG-TRACE)
[2017-04-20 13:16] LABS: BACTERIA,URINE 0 /HPF (0-FEW); SQUAMOUS EPITHELIAL CELL,UR MOD /LPF; WBC,URINE RARE /HPF (0-4)
[2017-04-20 15:08] VITALS: BP 133/79
--- NOTE | 2017-04-20 16:52 | CARD ---
APPROVED REPORT EXAM: Two-dimensional and M-mode echocardiogram with Doppler and color Doppler. Other Information Quality : Average Rhythm : NSR INDICATION Chest Pain 2D DIMENSIONS RVDd3.5 (2.9-3.5cm)Left Atrium(2D)3.7 (1.6-4.0cm) IVSd1.4 (0.7-1.1cm)Aortic Root(2D)2.7 (2.0-3.7cm) LVDd4.4 (3.9-5.9cm)LVOT Diameter2.4 (1.8-2.4cm) PWd1.4 (0.7-1.1cm)LVDs3.1 (2.5-4.0cm) FS (%) 30.1 %SV50.2 ml LVEF(%)57.5 (>50%) Aortic Valve AoV Peak Kunal.130.1cm/sAoV VTI26.3cm AO Peak GR.6.8mmHgLVOT Peak Kunal.99.2cm/s AO Mean GR.4mmHgAVA (VMAX)3.33cm2 Mitral Valve MV E Lxmhnzzf18.0cm/sMV DECEL [id number] MV A Qcidvaib50.6cm/sMV [id number] E/A Ratio1.1MV A [id number] MVA (PHT)3.20cm2 Tricuspid Valve TR P. Mzstpptd465ox/sRAP [id number] TR Peak Gr.[id number] LEFT VENTRICLE The left ventricle is normal size. There is moderate concentric left ventricular hypertrophy. Left ve ntricle systolic function is normal. The Ejection Fraction is 55-60%. There is normal LV segmental wa ll motion. The left ventricular diastolic function and filling is normal for age. There is no ventric ular septal defect visualized. RIGHT VENTRICLE The right ventricle is normal size. The right ventricular systolic function is normal. ATRIA The left atrium size is normal. The right atrium size is normal. The interatrial septum is intact wit h no evidence for an atrial septal defect or patent foramen ovale as noted on 2-D or Doppler imaging. AORTIC VALVE The aortic valve is normal in structure and function. Doppler and Color Flow revealed no significant aortic regurgitation. There is no significant aortic valvular stenosis. MITRAL VALVE The mitral valve is normal in structure and function. There is no mitral valve stenosis. Doppler and Color Flow revealed no mitral valve regurgitation noted. TRICUSPID VALVE The tricuspid valve is normal in structure and function. Doppler and Color Flow revealed trace tricus pid regurgitation. The PA pressure was estimated at 14 mmHg. There is no tricuspid valve stenosis. PULMONIC VALVE The pulmonic valve is not well visualized. Doppler and Color Flow revealed no pulmonic valvular regur gitation. There is no pulmonic valvular stenosis. GREAT VESSELS The aortic root is normal in size. Pulmonary veins not recorded. The IVC is normal in size and collap ses >50% with inspiration. PERICARDIAL EFFUSION There is no evidence of significant pericardial effusion. Critical Notification Critical Value: No <Conclusion> Left ventricle systolic function is normal. The Ejection Fraction is 55-60%. There is moderate concentric left ventricular hypertrophy. There is normal LV segmental wall motion.
== END 2017-04-20 17:40 | disposition home or self-care (01) | DRG 683 ==
LOC: ER 00:16 → 2 SOUTH 01:58
PROVIDERS: ADMIT Internal Medicine Hematology & Oncology; ATTEND Internal Medicine Hematology & Oncology
DX: I12.9 Hypertensive chronic kidney disease with stage 1 through stage 4 chronic kidney disease, or unspecified chronic kidney disease (principal); E44.1 Mild protein-calorie malnutrition; E11.9 Type 2 diabetes mellitus without complications; E66.01 Morbid (severe) obesity due to excess calories; E83.42 Hypomagnesemia; G47.33 Obstructive sleep apnea (adult) (pediatric); D72.829 Elevated white blood cell count, unspecified; R30.0 Dysuria; K21.9 Gastro-esophageal reflux disease without esophagitis; D64.9 Anemia, unspecified; M79.602 Pain in left arm; Z82.3 Family history of stroke; Z82.49 Family history of ischemic heart disease and other diseases of the circulatory system; Z91.19 Patient's noncompliance with other medical treatment and regimen; Z83.3 Family history of diabetes mellitus; Z98.891 History of uterine scar from previous surgery; N18.2 Chronic kidney disease, stage 2 (mild)
CPT/HCPCS: 36415; 70450; 71010; 80053; 80061; 81001; 81025; 82962; 83735; 83880; 84443; 84484; 85027; 85610; 85730; 93005; 93306; J0360; J2405; J7060; 99285-25